=== PATIENT | male | born 1955 | race Caucasian/White ===

== ENCOUNTER → 2017-01-20 | Outpatient (CLI) | payer BC | LOC: HEART 5 09:25 | DX: I73.9 Peripheral vascular disease, unspecified (principal); E11.9 Type 2 diabetes mellitus without complications; I10 Essential (primary) hypertension; I25.10 Atherosclerotic heart disease of native coronary artery without angina pectoris | CPT/HCPCS: 93925 ==

== ENCOUNTER → 2020-10-02 | Outpatient (CLI) | payer BC, MEDICARE, OTHER ==
[2020-10-02 17:20] LABS: HEMOGLOBIN 11.5 gm/dl (14.0-17.5); RED BLOOD COUNT 4.17 M/UL (4.20-5.50); WHITE BLOOD COUNT 5.8 K/UL (4.5-11.0)
== END ==
LOC: LAB 16:44
PROVIDERS: Internal Medicine Nephrology
DX: N18.30 Chronic kidney disease, stage 3 unspecified (principal)
CPT/HCPCS: 36415; 80069; 81001; 82570; 84156; 85025

== ENCOUNTER → 2021-03-05 | Outpatient (CLI) | payer BC, MEDICARE ==
[2021-03-05 11:08] LABS: HEMOGLOBIN 10.2 gm/dl (14.0-17.5); RED BLOOD COUNT 3.94 M/UL (4.20-5.50); WHITE BLOOD COUNT 5.7 K/UL (4.5-11.0)
== END ==
LOC: LAB 08:15
PROVIDERS: Internal Medicine Cardiovascular Disease
DX: I25.10 Atherosclerotic heart disease of native coronary artery without angina pectoris (principal); R60.9 Edema, unspecified; R06.02 Shortness of breath; I50.42 Chronic combined systolic (congestive) and diastolic (congestive) heart failure
CPT/HCPCS: 36415; 80048; 80076; 83540; 85027

== ENCOUNTER → 2022-04-01 | Outpatient (CLI) | payer BC, MEDICARE ==
[~2022-04-01] MED LIST: ALL DAY ALLERGY10 M2 PO; AMIODARONE HCL200 MG PO; CARVEDILOL12.5 MG PO; CYANOCOBAL1000 MCG/1 INJ; ELIQUIS 2.5 MG2.5 MG PO; ENTRESTO 24 MG1 EACH PO; FENOFIBRATE160 MG PO; FUROSEMIDE40 MG PO; GLIPIZIDE ER10 MG PO; ISOSORBIDE MONO30 MG PO; JANUVIA50 MG PO; LASIX20 MG PO; LEVOTHYROXINE100 MC2 PO; NITROGLYCERIN0.4 MG SL; PACERONE400 MG PO; PROTONIX20 MG PO; SINGULAIR10 MG PO; SPIRONOLACTONE25 MG PO; TRESIBA100 UNIT/1 SQ; VITAMIN D21250 MCG PO
[2022-04-01 09:40] LABS: HEMOGLOBIN 11.2 gm/dl (14.0-17.5); RED BLOOD COUNT 3.8 M/UL (4.20-5.50); WHITE BLOOD COUNT 6.3 K/UL (4.5-11.0)
== END | disposition home or self-care (01) ==
LOC: CATH 07:30 → EDSTATUS 07:30 → CATH 07:54
PROVIDERS: Internal Medicine Cardiovascular Disease
DX: I48.19 Other persistent atrial fibrillation (principal); I25.5 Ischemic cardiomyopathy; I13.0 Hypertensive heart and chronic kidney disease with heart failure and stage 1 through stage 4 chronic kidney disease, or unspecified chronic kidney disease; E11.22 Type 2 diabetes mellitus with diabetic chronic kidney disease; N18.9 Chronic kidney disease, unspecified; I50.22 Chronic systolic (congestive) heart failure; I25.10 Atherosclerotic heart disease of native coronary artery without angina pectoris; I48.92 Unspecified atrial flutter; I49.01 Ventricular fibrillation; J45.909 Unspecified asthma, uncomplicated; E78.5 Hyperlipidemia, unspecified; E03.9 Hypothyroidism, unspecified; Z95.1 Presence of aortocoronary bypass graft; Z95.5 Presence of coronary angioplasty implant and graft; Z79.01 Long term (current) use of anticoagulants; Z79.84 Long term (current) use of oral hypoglycemic drugs; Z79.899 Other long term (current) drug therapy; Z82.49 Family history of ischemic heart disease and other diseases of the circulatory system
CPT/HCPCS: 80048; 82962; 85027; 93005; J1200; J1742; J2250; J2310; J3010

== ENCOUNTER → 2022-05-29 | Outpatient (CLI) | payer BC, MEDICARE | LOC: HEART 5 08:50 | DX: R06.02 Shortness of breath (principal); Z79.899 Other long term (current) drug therapy | CPT/HCPCS: 94060; 94729 ==